=== PATIENT | male | born 1985 | race Caucasian/White ===

== ENCOUNTER 2018-07-03 12:35 | Emergency (ER) | payer OTHER ==
[~2018-07-03] VITALS: Ht 172.7 cm; Wt 74.8 kg
[~2018-07-03 12:35] MED LIST: CIPRO500 MG PO; HYOSCYAMINE0.125 M1 PO; PROTONIX40 MG PO
== END 2018-07-03 17:53 | disposition home or self-care (01) ==
LOC: ER 12:35
DX: B34.9 Viral infection, unspecified (principal)